=== PATIENT | female | born 1935 | race Caucasian/White ===

== ENCOUNTER 2023-11-18 08:45 | Inpatient (IN) | payer OTHER ==
[2023-11-21] MEDS: Bisacodyl 10 MG Supp RECTAL ONE (21:50)
== END 2023-11-23 10:30 | disposition home or self-care (01) | DRG 951 ==
LOC: CC.MS 12:35
PROVIDERS: ADMIT Physician Assistant Medical; ATTEND Physician Assistant Medical
DX: Z51.5 Encounter for palliative care (principal); Z75.5 Holiday relief care; G30.1 Alzheimer's disease with late onset; F02.80 Dementia in other diseases classified elsewhere, unspecified severity, without behavioral disturbance, psychotic disturbance, mood disturbance, and anxiety
CPT/HCPCS: A9270-GY